=== PATIENT | female | born 1950 | race Caucasian/White ===

== ENCOUNTER 2024-01-18 20:57 | Inpatient (IN) | payer MEDICARE, OTHER ==
[~2024-01-18] VITALS: Ht 172.7 cm; Wt 72.7 kg
[2024-01-18 21:56] LABS: BASOPHILS # (AUTO) 0.1 X10'3 (0-0.2); BASOPHILS % (AUTO) 1.3 % (0-1); EOSINOPHILS # (AUTO) 0.4 X10'3 (0-0.9); EOSINOPHILS % (AUTO) 6.6 % (0-6); HEMATOCRIT 40.5 % (35.0-45.0); HEMOGLOBIN 13.7 g/dl (12.0-16.0); LYMPHOCYTES # (AUTO) 2.2 X10'3 (1.1-4.8); LYMPHOCYTES % (AUTO) 35.3 % (21-51); MEAN CORPUSCULAR HEMOGLOBIN 31.7 PG (27.0-31.0); MEAN CORPUSCULAR HGB CONC 33.9 g/dL (33.0-36.5); MEAN CORPUSCULAR VOLUME 93.6 FL (78-98); MEAN PLATELET VOLUME 8.1 FL (7.4-10.4); MONOCYTES # (AUTO) 0.6 X10'3 (0-0.9); NEUTROPHILS # (AUTO) 2.9 X10'3 (1.8-7.7); NEUTROPHILS % (AUTO) 46.8 % (42-75); PLATELET COUNT 207 X10'3 (140-440); RED BLOOD COUNT 4.32 X10'6 (4.20-5.60); RED CELL DISTRIBUTION WIDTH 14.6 % (11.5-14.5); WHITE BLOOD COUNT 6.1 X10'3 (4.5-11.0)
[2024-01-18] MEDS: morphine 4 MG/ML inj SYRINge IV ONE (21:58)
[2024-01-18] MEDS: ondansetron/PF 4mg/2ml inj IV ONE (21:58)
[2024-01-18 22:04] LABS: ALBUMIN 3.3 G/DL (3.4-5.0); ANION GAP 12 (8-16); BLOOD UREA NITROGEN 11 MG/DL (7-18); BUN/CREATININE RATIO 14.9 (10.0-20.0); CALCIUM 8.9 MG/DL (8.5-10.1); CHLORIDE 100 MMOL/L (99-107); CREATININE 0.74 MG/DL (0.40-0.90); GLUCOSE 82 MG/DL (70-104); LIPASE 36 U/L (16-77); POTASSIUM 3.4 MMOL/L (3.5-5.1); SODIUM 135 MMOL/L (135-145); TOTAL CARBON DIOXIDE 23.1 MMOL/L (24-32); eCRCL 70 ML/MIN; eGFR 77 ML/MIN
[2024-01-18] MEDS ORDERED: iohexol 350MG/ML 100ml bottle IV ONE (22:14)
[2024-01-18 23:11] LABS: BILIRUBIN,URINE NEGATIVE (Neg); CLARITY,URINE CLEAR (Clear); COLOR,URINE YELLOW (Yellow); GLUCOSE, URINE NEGATIVE (Neg); KETONES,URINE NEGATIVE (Neg); LEUKOCYTE ESTERASE ,URINE NEGATIVE (Neg); NITRITES, URINE NEGATIVE (Neg); OCCULT BLOOD,URINE NEGATIVE (Neg); PROTEIN,URINE NEGATIVE (Neg); UROBILINOGEN,URINE 0.2 E.U/dL (0.2-1.0)
[2024-01-18] MEDS: ketorolac trometh 30MG/ML vial 30 MG/ML VIAL IV ONE (23:13)
[2024-01-18] MEDS: fentaNYL/PF 50MCG/1 ML 2ML syringe IV ONE (23:14)
[2024-01-18 23:17] LABS: UA COLLECTION TYPE NON-SPECIFIED
[2024-01-19] MEDS ORDERED: ondansetron/PF 4mg/2ml inj IV PRN (01:05)
[2024-01-19] MEDS ORDERED: mag hydrox/Alum hydrox/simeth 30ml oral suspension PO PRN (01:05)
[2024-01-19] MEDS ORDERED: morphine 2 MG/ML inj. syringe IV PRN (01:05)
[2024-01-19] MEDS ORDERED: magnesium Cl slow-release 64mg tablet PO PRN (01:05)
[2024-01-19] MEDS ORDERED: potassium Cl 20 mEq SR tablet PO PRN (01:05)
[2024-01-19] MEDS ORDERED: potassium Cl 40MEQ/1/2NS 520ml 520 ML IV PRN (01:05)
[2024-01-19] MEDS ORDERED: magnesium sulf-water 4G/100mL 100 ML IV PRN (01:05)
[2024-01-19] MEDS ORDERED: magnesium sulf-water 2g/50mL 50 ML IV PRN (01:05)
[2024-01-19 02:45] VITALS: BP 113/69; PULSE 76; RESP 76; O2SAT 98
[2024-01-19 05:04] LABS: MAGNESIUM 2.2 MG/DL (1.5-2.4); POTASSIUM 3.6 MMOL/L (3.5-5.1)
[2024-01-19 08:00] VITALS: RESP 16; O2SAT 95
[2024-01-19] MEDS: K and/or MAG REPLACEMENT MC SCH (08:00)
[2024-01-19] MEDS: docusate sod 100mg capsule PO SCH ×2 (08:16→19:57)
[2024-01-19] MEDS: acetaminophen 325mg tablet PO PRN (08:18)
[2024-01-19 10:00] VITALS: BP 142/64; PULSE 64; RESP 18; TEMP 98.4; O2SAT 100
[2024-01-19] MEDS: morphine 2 MG/ML inj. syringe IV PRN (10:53)
[2024-01-19 11:49] VITALS: BP 109/62; PULSE 65; RESP 16; TEMP 96.4; O2SAT 95
[2024-01-19] MEDS ORDERED: TRAZ-256 PO (14:10)
[2024-01-19] MEDS ORDERED: ROPI2TAB29 PO (14:12)
[2024-01-19] MEDS ORDERED: DULO-31 PO (14:13)
[2024-01-19] MEDS ORDERED: PREG50CA PO (14:15)
[2024-01-19] MEDS: LORazepam 2 mg/ml vial IV ONE (14:36)
[2024-01-19] MEDS ORDERED: bisacodyl 5mg tablet.DR PO PRN (17:20)
[2024-01-19 18:00] VITALS: BP 112/60; PULSE 71; RESP 15; TEMP 97.5; O2SAT 97
[2024-01-19] MEDS: heparin, porcine 5000 units/ml vial SQ SCH (19:57)
[2024-01-19 22:00] VITALS: BP 128/53; PULSE 63; RESP 14; TEMP 98.3; O2SAT 99
[2024-01-20 06:00] VITALS: BP 104/57; PULSE 61; RESP 15; TEMP 98; O2SAT 98
[2024-01-20 07:30] VITALS: RESP 19; O2SAT 96
[2024-01-20 08:03] LABS: MAGNESIUM 2.1 MG/DL (1.5-2.4); POTASSIUM 3.4 MMOL/L (3.5-5.1)
[2024-01-20] MEDS: potassium Cl 20 mEq SR tablet PO PRN (08:53)
[2024-01-20 09:02] LABS: BASOPHILS # (AUTO) 0.1 X10'3 (0-0.2); EOSINOPHILS # (AUTO) 0.4 X10'3 (0-0.9); EOSINOPHILS % (AUTO) 6.1 % (0-6); HEMATOCRIT 38.4 % (35.0-45.0); HEMOGLOBIN 12.6 g/dl (12.0-16.0); LYMPHOCYTES % (AUTO) 29.3 % (21-51); MEAN CORPUSCULAR HEMOGLOBIN 31.4 PG (27.0-31.0); MEAN CORPUSCULAR HGB CONC 32.9 g/dL (33.0-36.5); MEAN CORPUSCULAR VOLUME 95.5 FL (78-98); MEAN PLATELET VOLUME 8.7 FL (7.4-10.4); MONOCYTES # (AUTO) 0.7 X10'3 (0-0.9); MONOCYTES % (AUTO) 10.4 % (2-12); NEUTROPHILS # (AUTO) 3.6 X10'3 (1.8-7.7); NEUTROPHILS % (AUTO) 53.2 % (42-75); PLATELET COUNT 198 X10'3 (140-440); RED BLOOD COUNT 4.02 X10'6 (4.20-5.60); RED CELL DISTRIBUTION WIDTH 14.9 % (11.5-14.5); WHITE BLOOD COUNT 6.9 X10'3 (4.5-11.0)
[2024-01-20 09:13] LABS: ALANINE AMINOTRANSFERASE 21 U/L (12-78); ALBUMIN 3.1 G/DL (3.4-5.0); ALBUMIN/GLOBULIN RATIO 1.2 (1.1-1.5); ALKALINE PHOSPHATASE 137 IU/L (46-116); ANION GAP 10 (8-16); ASPARTATE AMINO TRANSFERASE 24 U/L (10-37); BILIRUBIN,TOTAL 0.3 MG/DL (0.1-1.0); BLOOD UREA NITROGEN 11 MG/DL (7-18); BUN/CREATININE RATIO 15.5 (10.0-20.0); CALCIUM 8.5 MG/DL (8.5-10.1); CHLORIDE 106 MMOL/L (99-107); CREATININE 0.71 MG/DL (0.40-0.90); GLUCOSE 87 MG/DL (70-104); SODIUM 139 MMOL/L (135-145); TOTAL CARBON DIOXIDE 22.9 MMOL/L (24-32); TOTAL PROTEIN 5.6 G/DL (6.4-8.2); eCRCL 73 ML/MIN; eGFR 81 ML/MIN
[2024-01-20 10:00] VITALS: BP 116/70; PULSE 66; RESP 15; TEMP 98.1; O2SAT 99
[2024-01-20] MEDS: duloxetine 30mg CAPSULE.DR PO SCH (10:43)
[2024-01-20] MEDS: pregabalin 25mg capsule PO SCH (10:43)
[2024-01-20] MEDS ORDERED: LORazepam 1 MG tablet PO PRN ×2 (11:15→13:30)
[2024-01-20] MEDS: LORazepam 2 mg/ml vial IV PRN (12:32)
[2024-01-20] MEDS ORDERED: LORazepam 2 mg/ml vial IV PRN (13:30)
[2024-01-20] MEDS ORDERED: bisacodyl 10mg suppository rectal RC PRN (13:30)
[2024-01-20] MEDS ORDERED: morphine 2 MG/ML inj. syringe IV PRN ×2 (13:30)
[2024-01-20] MEDS ORDERED: iohexol 300mg/ml 100ml inj. ONE (13:43)
[2024-01-20 18:00] VITALS: BP 120/63; PULSE 66; RESP 16; TEMP 98.3; O2SAT 95
[2024-01-20] MEDS: traZODone 50mg tablet PO SCH (19:44)
[2024-01-20] MEDS: ROPINIRole 1mg tablet PO SCH (19:45)
[2024-01-20] MEDS: polyethylene glycol 3350 17gm powd pack PO SCH (19:45)
[2024-01-20 22:00] VITALS: BP 108/57; PULSE 73; RESP 16; TEMP 96.9; O2SAT 98
[2024-01-21 06:02] LABS: HBSAG SCREEN Negative (Negative); HEP B CORE AB, IGM Negative (Negative); HEP B CORE AB, TOT Negative (Negative)
[2024-01-21 06:30] VITALS: BP 100/54; PULSE 59; RESP 15; TEMP 97.3; O2SAT 99
[2024-01-21 08:00] VITALS: RESP 16; O2SAT 96
[2024-01-21 08:19] LABS: MAGNESIUM 2.1 MG/DL (1.5-2.4); POTASSIUM 3.9 MMOL/L (3.5-5.1)
[2024-01-21] MEDS: magnesium hydroxide 30ml (MOM) UD suspension PO PRN (08:57)
[2024-01-21 18:00] VITALS: BP 132/73; PULSE 56; RESP 16; TEMP 97.9; O2SAT 98
[2024-01-21 22:35] VITALS: BP 124/63; PULSE 62; RESP 16; TEMP 97.8; O2SAT 96
[2024-01-22 06:31] VITALS: BP 121/67; PULSE 57; RESP 17; TEMP 96.9; O2SAT 100
[2024-01-22 08:00] VITALS: RESP 16; O2SAT 96
[2024-01-22 09:10] LABS: MAGNESIUM 2.2 MG/DL (1.5-2.4); POTASSIUM 4.4 MMOL/L (3.5-5.1)
== END 2024-01-22 12:00 | disposition home or self-care (01) | DRG 552 ==
LOC: ER 20:58 → ED HOLD 01-19 01:05 → EDBEDREQ 01-19 02:09 → ORTHO 4S 01-19 02:25
PROVIDERS: ADMIT Surgery Surgical Critical Care; ATTEND Internal Medicine
DX: M51.26 Other intervertebral disc displacement, lumbar region (principal); M48.061 Spinal stenosis, lumbar region without neurogenic claudication; M51.17 Intervertebral disc disorders with radiculopathy, lumbosacral region; E87.6 Hypokalemia; G89.4 Chronic pain syndrome; F41.9 Anxiety disorder, unspecified; K59.09 Other constipation; M51.36 Other intervertebral disc degeneration, lumbar region; G25.81 Restless legs syndrome; G47.00 Insomnia, unspecified; Z79.899 Other long term (current) drug therapy; Z98.1 Arthrodesis status
CPT/HCPCS: 36415; 72110; 72132; 72148; 74177; 80048; 80053; 81003; 83690; 83735; 84132; 84145; 85025; 85651; 86704; 86705; 87081; 87340; 96374; 96375; 97110; 97116; 97162; 97530; 99285; G0378; J1644; J1885; J2060; J2270; J2405; J3010; Q9967

== ENCOUNTER 2024-02-08 05:43 | Observation (INO) | payer MEDICARE, OTHER ==
[2024-02-05 15:20] LABS: BILIRUBIN,URINE NEGATIVE (Neg); CLARITY,URINE SLIGHTLY CLOUDY (Clear); COLOR,URINE YELLOW (Yellow); GLUCOSE, URINE NEGATIVE (Neg); KETONES,URINE NEGATIVE (Neg); LEUKOCYTE ESTERASE ,URINE TRACE (Neg); NITRITES, URINE NEGATIVE (Neg); OCCULT BLOOD,URINE NEGATIVE (Neg); PROTEIN,URINE NEGATIVE (Neg); UROBILINOGEN,URINE 0.2 E.U/dL (0.2-1.0)
[2024-02-05 15:21] LABS: UA COLLECTION TYPE CLN CATCH MIDSTREAM
[2024-02-05 15:27] LABS: BASOPHILS # (AUTO) 0.1 X10'3 (0-0.2); BASOPHILS % (AUTO) 1.2 % (0-1); EOSINOPHILS # (AUTO) 0.3 X10'3 (0-0.9); EOSINOPHILS % (AUTO) 4.6 % (0-6); LYMPHOCYTES # (AUTO) 2.2 X10'3 (1.1-4.8); LYMPHOCYTES % (AUTO) 31.6 % (21-51); MEAN CORPUSCULAR HEMOGLOBIN 30.6 PG (27.0-31.0); MEAN CORPUSCULAR HGB CONC 32.8 g/dL (33.0-36.5); MEAN CORPUSCULAR VOLUME 93.2 FL (78-98); MEAN PLATELET VOLUME 8.2 FL (7.4-10.4); MONOCYTES # (AUTO) 0.5 X10'3 (0-0.9); MONOCYTES % (AUTO) 7.8 % (2-12); NEUTROPHILS # (AUTO) 3.9 X10'3 (1.8-7.7); NEUTROPHILS % (AUTO) 54.8 % (42-75); PRE OP HEMATOCRIT 41.2 % (35.0-45.0); PRE OP HEMOGLOBIN 13.5 g/dL (12.0-16.0); PRE OP PLATELET COUNT 212 X10'3 (140-440); RED BLOOD COUNT 4.42 X10'6 (4.20-5.60); RED CELL DISTRIBUTION WIDTH 14.8 % (11.5-14.5)
[2024-02-05 15:29] LABS: WBC,URINE 0-4 /HPF (0-4)
[2024-02-05 15:30] LABS: BACTERIA,URINE 3+ /HPF (Neg); CAL OXALATE CRYSTALS 3+ /HPF (NEGATIVE); MUCUS STRANDS MODERATE /LPF (Neg); RBC,URINE 0-2 /HPF (0-2); SQUAMOUS EPITHELIAL CELL,UR MANY /LPF (FEW)
[2024-02-05 15:39] LABS: ALBUMIN 3.5 G/DL (3.4-5.0); ALBUMIN/GLOBULIN RATIO 1.2 (1.1-1.5); ALKALINE PHOSPHATASE 173 IU/L (46-116); BLOOD UREA NITROGEN 12 MG/DL (7-18); BUN/CREATININE RATIO 13.5 (10.0-20.0); CALCIUM 9.1 MG/DL (8.5-10.1); CHLORIDE 106 MMOL/L (99-107); CREATININE 0.89 MG/DL (0.40-0.90); PRE OP ALT 25 U/L (30-65); PRE OP ANION GAP 6 (8-16); PRE OP AST 22 U/L (10-37); PRE OP BILIRUB, TOTAL 0.4 MG/DL (0.0-1.0); PRE OP GLUCOSE 97 MG/DL (70-104); PRE OP SODIUM 142 MMOL/L (135-145); TOTAL CARBON DIOXIDE 29.9 MMOL/L (24-32); TOTAL PROTEIN 6.5 G/DL (6.4-8.2); eGFR 63 ML/MIN
[2024-02-08] VITALS (10 sets, daily range): BP systolic 102–126; BP diastolic 51–74; PULSE 69–90; RESP 11–16; TEMP 98.1; O2SAT 95–99
[~2024-02-08] VITALS: Ht 172.7 cm; Wt 72.7 kg
[~2024-02-08 05:43] MED LIST: DULO-31 PO; PREG50CA PO; ROPI2TAB29 PO; TRAZ-256 PO
[2024-02-08] MEDS: famotidine 20mg tablet PO ONE (06:25)
[2024-02-08] MEDS: ringers solution, lacted 1,000 ML IV SCH (06:26)
[2024-02-08] MEDS: cefazolin 2gm/D5W 100mL 100 ML IV ONE (06:26)
[2024-02-08] MEDS ORDERED: BUPIVAcaine/PF 2.5mg/ml (0.25%) 10ml vial ONE (06:42)
[2024-02-08] MEDS ORDERED: methylPREDNISolone acetate 80mg/ml inj**IM only ONE (06:42)
[2024-02-08] MEDS ORDERED: BUPIVAcaine 0.5% inj/PF 30 ML ONE (06:42)
[2024-02-08] MEDS ORDERED: Thrombin (Bovine) 5,000 unit vial TP ONE (06:43)
[2024-02-08] MEDS ORDERED: gelatin sponge, absorbable (Gelfoam 100) sponge TP ONE (06:43)
[2024-02-08] MEDS ORDERED: fentaNYL/PF 50MCG/1 ML 2ML syringe ONE ×3 (07:17→11:26)
[2024-02-08] MEDS ORDERED: MIDAZolam 1 MG/ML 5ML VIAL ONE (07:17)
[2024-02-08] MEDS ORDERED: propofol inj 20 ML IV ONE (07:18)
[2024-02-08] MEDS ORDERED: dexamethasone sod phosphate 4mg/ml inj. ONE (07:19)
[2024-02-08] MEDS ORDERED: ondansetron/PF 4mg/2ml inj ONE (07:19)
[2024-02-08] MEDS ORDERED: LIDOcaine 2% (20mg/ml) 5ml vial ONE ×2 (07:19)
[2024-02-08] MEDS ORDERED: rocuronium 10mg/ml inj IV ONE ×2 (07:19→09:05)
[2024-02-08] MEDS ORDERED: labetalol 20mg/4ml (5mg/ml) syringe IV PRN (07:25)
[2024-02-08] MEDS ORDERED: morphine 2 MG/ML inj. syringe IV PRN (07:25)
[2024-02-08] MEDS ORDERED: fentaNYL/PF 50MCG/1 ML 2ML syringe IV PRN ×2 (07:25)
[2024-02-08] MEDS ORDERED: ondansetron/PF 4mg/2ml inj IV PRN ×2 (07:25→12:30)
[2024-02-08] MEDS ORDERED: morphine 4 MG/ML inj SYRINge IV PRN (07:25)
[2024-02-08] MEDS ORDERED: hydrALAZINE 20mg/ml inj. IV PRN (07:25)
[2024-02-08] MEDS ORDERED: ringers solution, lacted 1,000 ML IV SCH ×2 (07:25→12:30)
[2024-02-08] MEDS ORDERED: sevoflurane 250ml liquid IH ONE (07:57)
[2024-02-08] MEDS ORDERED: acetaminophen 1,000mg/100ml IV 100 ML IV ONE (08:34)
[2024-02-08] MEDS ORDERED: ATROPINE SULFATE 0.4 MG/ML injection (OR only) ONE (08:36)
[2024-02-08] MEDS ORDERED: ePHEDrine 50MG/ML INJ. ONE (08:37)
[2024-02-08] MEDS ORDERED: sugammadex 200mg/2ml injection IV ONE (11:26)
[2024-02-08] MEDS ORDERED: HYDROcodone/acetaminophen 10/325mg tab PO PRN (12:30)
[2024-02-08] MEDS ORDERED: HYDROmorphone inj. 0.5 MG/0.5 ML DISP.SYRIN IV PRN (12:30)
[2024-02-08] MEDS ORDERED: HYDR-3973 PO (12:46)
[2024-02-08] MEDS ORDERED: Cefazolin 2GM/100ML NS IVPB 50 ML IV SCH (13:00)
[2024-02-09] MEDS ORDERED: docusate sod 100mg capsule PO SCH (08:00)
== END 2024-02-08 13:17 | disposition home or self-care (01) ==
LOC: PAS 05:43 → PACU 12:40
PROVIDERS: ADMIT Neurological Surgery; ATTEND Neurological Surgery
DX: M48.061 Spinal stenosis, lumbar region without neurogenic claudication (principal); M54.32 Sciatica, left side; M54.31 Sciatica, right side; F32.A Depression, unspecified; G25.81 Restless legs syndrome; Z87.891 Personal history of nicotine dependence; Z79.899 Other long term (current) drug therapy
CPT/HCPCS: 63030; 72100; 80053; 81001; 82948; 86870; 86885; 86900; 86901; 86902; 86905; 86922; 93005; A4215; A4355; A4618; A7000; G0378; J0690; J3490; J7120; 36415; 76000; 85025; 87081; A6213; A6449; J0131; J1010; J1100; J2250; J2405; J2704; J3010; J7050